=== PATIENT | female | born 1945 | race Caucasian/White ===

== ENCOUNTER → 2016-11-10 | Outpatient (CLI) | payer OTHER ==
[~2016-11-10] MED LIST: AMLO-114 PO; AMOX500C3 PO; ASPEC81 PO; ATEN50TA8 PO; ATV5 PO; B-CO1CAP17 PO; BND25 PO; CALCTAB5 PO; CARB0.5D28 OPB; CHOL200027 PO; CLC100X PO; CYCL0.05 OPB; CYCL5TAB28 PO; GAVISCON PO; HOME1TAB18 PO; IMD/2 PO; LEVO100T PO; LUTE20TA PO; MELA3TAB PO; MENT4GEL TOP; MULT-240 PO; OMEG10007 PO; OXYC-57 PO; OXYC1TAB3 PO; PRLSR20 PO; QSTP/; SALINE NASAL SPRAY; SIME80CH PO; SIMV20TA2 PO; [UNRECOGNIZED DRUG - CODE] PO; [UNRECOGNIZED DRUG - CODE] PO; [UNRECOGNIZED DRUG - OTHER] PO; [UNRECOGNIZED DRUG - OTHER] PO; [UNRECOGNIZED DRUG - OTHER] PO
[2016-11-10 18:22] LABS: THYROID STIMULATING HORMONE 0.567 uIu/ml (0.300-4.500)
== END | disposition home or self-care (01) ==
LOC: C.LABBC 12:34
PROVIDERS: ATTEND Internal Medicine Endocrinology, Diabetes & Metabolism
DX: E06.3 Autoimmune thyroiditis (principal); E03.9 Hypothyroidism, unspecified

== ENCOUNTER → 2017-03-11 | Outpatient (CLI) | payer OTHER ==
[~2017-03-11] MED LIST changes: -BND25 PO; +DIPH25CA5 PO
--- NOTE | 2017-03-11 12:56 | DIAGNOSTIC IMAGING REPORT ---
Thyroid ultrasound CLINICAL HISTORY: E03.9 [id number] Multinodular [id number] COMPARISON STUDY: 07/27/2013 FINDINGS: The right lobe measures 4.8 x 1.5 x 1.5 cm. There is a 5 mm calcified lower pole right lobe nodule, similar to the preceding study. The left lobe measures 4.2 x 1.7 x 2.0 cm. There is a mixed echogenicity lower pole left lobe nodule measuring 9 mm. This is complex cystic. There are 2 relatively isoechoic nodules arising from the isthmus measuring 8 x 10 x 9 mm and 10 x 16 x 8 mm. Both lobes are diffusely heterogeneous in echotexture. IMPRESSION: Multinodular thyroid gland, similar in appearance the prior July 2013 study Electronically signed by: Timothy Dominguez M.D. 03/11/2017 12:55 PM Dictated Date/Time: 03/11/2017 12:51 PM
== END | disposition home or self-care (01) ==
LOC: C.ULTR 12:09
PROVIDERS: ATTEND Internal Medicine Endocrinology, Diabetes & Metabolism
DX: E04.2 Nontoxic multinodular goiter (principal); E03.9 Hypothyroidism, unspecified

== ENCOUNTER → 2018-05-25 | Day surgery (SDC) | payer OTHER ==
[2018-05-06 09:30] VITALS: Ht 170.2 cm; Wt 118.2 kg
[~2018-05-25] VITALS: Ht 170.2 cm; Wt 118.2 kg
[~2018-05-25] MED LIST changes: +500ML BSS 0.3ML EPI 1:1000PF IRRIG ONE; +ACET-1256 PO; +ACETAMINOPHEN 325 MG TAB PO PRN; -AMLO-114 PO; +AMLO10TA3 PO; +AMLO5TAB3 PO; +AMVISC PLUS 0.8ML SYRINGE INT OCU ONE; +ATROPINE SULFATE 0.1 MG/ML 5ML SYR IV PRN; -ATV5 PO; -B-CO1CAP17 PO; +BSS FLUSH ONE; +CALC0.2510 PO; -CALCTAB5 PO; -CLC100X PO; +CYM/30 PO; -DIPH25CA5 PO; +DULO60CA44 PO; +EpHEDrine SULFATE INJ 50 MG/ML AMP IV PRN; +EpINEphrine INJ 1MG/ML AMP 1 MG/ML AMP ONE; +FENTANYL CITRATE INJ 50 MCG/1 ML 2 ML VIAL ONE; +FLUO0.0566 TOP; +FLUT0.15; -GAVISCON PO; -HOME1TAB18 PO; +LACTATED RINGER'S 1000ML 500 ML IV SCH; -LEVO100T PO; +LEVO88TA3 PO; +LIDOCAINE 3.5% OPH GEL PER APPLICATION CHARGE ONE; +LIDOCAINE HCL 1% MPF 2 ML VIAL ONE; +LORA-741 PO; +LUTE15CA PO; -LUTE20TA PO; -MENT4GEL TOP; +MIDAZOLAM HCL 1 MG/ML 2ML VIAL ONE; -MULT-240 PO; +OCUCOAT 1 ML SOLN IO ONE; -OMEG10007 PO; -OXYC-57 PO; +OXYC-737 PO; -OXYC1TAB3 PO; +PHENYLEPHRINE HCL 10% OP SOLN PER DROP CHARGE OPL SCH; +POVIDONE-IODINE OP SOLN 30 ML BTL ONE; +PROBCAP PO; +PROPARACAINE 0.5% OP SOLN PER DROP CHARGE OPL SCH; -QSTP/; +QUESTRAN PO; +TOBRAMYCIN/DEXAMETHASONE OPH OINT PER APPLN CHARGE ONE; -[UNRECOGNIZED DRUG - CODE] PO; +[UNRECOGNIZED DRUG - CODE] TOP; -[UNRECOGNIZED DRUG - OTHER] PO; -[UNRECOGNIZED DRUG - OTHER] PO; -[UNRECOGNIZED DRUG - OTHER] PO
[2018-05-25] MEDS: PHENYLEPHRINE HCL 2.5% OP SOLN PER DROP CHARGE OPL SCH ×2 (07:36→07:41)
[2018-05-25] MEDS: TROPICAMIDE 1% OP SOLN PER DROP CHARGE OPL SCH ×2 (07:37→07:42)
[2018-05-25] MEDS: CYCLOPENTOLATE HCL 1% OP SOLN PER DROP CHARGE OPL SCH ×2 (07:38→07:43)
[2018-05-25] MEDS: KETOROLAC 0.5% OP SOLN PER DROP CHARGE OPL SCH ×2 (07:39→07:44)
[2018-05-25] MEDS: GATIFLOXACIN OP SOLN PER DROP CHARGE OPL SCH ×2 (07:40→07:50)
--- NOTE | 2018-05-25 07:51 | History & Physical Bridge - SC ---
H&P Re-Evaluation Bridge Note: I have examined the patient, reviewed the History & Physical and in the interval since the performance of the History & Physical I have noted the following changes of clinical significance: Diagnosis: Left Cataract Procedure: Left Cataract Removal with Lens Implant No changes noted
--- NOTE | 2018-05-25 08:44 | Discharge Instructions-SurgCtr ---
Discharge Instructions Date of Service May 25, 2018. Visit Reason for Visit: Cataract Left Eye Discharge Discharge Diagnosis / Problem: cataract Discharge Goals Goal(s): Improve function Activity Recommendations Activity Limitations: per Instructions/Follow-up section Anesthesia . Post Anesthesia Instructions: If you have had General Anesthesia or IV Sedation: * Do not drive today. * Resume driving when surgeon permits. * Do not make important decisions or sign legal documents today. * Call surgeon for: 1. Temperature elevations greater than 101 degrees F. 2. Uncontrollable pain. 3. Excessive bleeding. 4. Persistent nausea and vomiting. 5. Medication intolerance (nausea, vomiting or rash). * For nausea and vomiting use only clear liquids such as: tea, soda, bouillon until nausea subsides, then gradually increase diet as tolerated. * If you have any concerns or questions, call your surgeon's office. If physician is unavailable and it is an emergency, call 911 or go to the nearest emergency room. . Diet Recommendations Home Diet: resume previous diet Procedures Procedures Performed: Left Cataract Phacoemulsification With Intraocular Lens Implant Pending Studies Studies pending at discharge: no Medical Emergencies . Who to Call and When: Medical Emergencies: If at any time you feel your situation is an emergency, please call 911 immediately. . Non-Emergent Contact Non-Emergency issues call your: [employer] . . "Provider Documentation" section prepared by Clayton Peralta. .
--- NOTE | 2018-05-25 08:44 | [facility] Operative Report ---
Operative Report Date of Service May 25, 2018. Operative Report 1. PREOPERATIVE DIAGNOSIS: Cataract of the left eye. 2. POSTOPERATIVE DIAGNOSIS: Same. 3. PROCEDURE: Phacoemulsification with intraocular lens implantation of the left eye. SURGEON: Dr. Clayton Peralta. ANESTHESIA: Topical Lidocaine gel, 1% Non- Preserved intracameral Lidocaine, and monitored intravenous sedation. INDICATIONS FOR THE PROCEDURE: The patient is a 72 - year-old female with a history of cataract of the left eye causing significant visual impairment. The details of the proposed procedure were explained to the patient who asked appropriate questions and following discussion of all risks, benefits and alternatives agreed to have the procedure done. 4. OPERATION AND FINDINGS: DESCRIPTION OF PROCEDURE: After informed consent was obtained, the patient was brought to the Operating Room at the [facility]. The patient was placed in a supine position and then the left eye was prepped and draped in the usual sterile fashion for intraocular surgery. A drop of topical Lidocaine gel was placed in the operative eye. A wire lid speculum was then placed in the fornices. A corneal paracentesis was then created temporally. The Non-Preserved Lidocaine was then instilled into the anterior chamber. The anterior chamber was then pressurized with viscoelastic. A 2.0 mm clear corneal incision was then created temporally. A cystotome was inserted into the anterior chamber and used to create a tear in the anterior lens capsule. This capsular tear was then used to create a small flap and the flap was dragged in a counterclockwise direction in order to create a continuous curvilinear capsulorrhexis. Hydrodissection was accomplished with balanced salt solution. Phacoemulsification of the lens nucleus was then performed in a standard [id number] technique. The phaco time was 15 seconds with an average power of 11 %. The remaining cortical material was removed using irrigation aspiration. The capsular bag was then filled with viscoelastic. A [employer]ch [employer] Lomb MI60L +19.5 diopters lens was then loaded into the injector and injected into the capsular bag. The remaining viscoelastic was removed with the irrigation aspiration handpiece. The wound was hydrated and then checked and found to be watertight. The intraocular pressure was checked and found to be adequate. The wire lid speculum was removed and the patient's face was cleaned and dried. TobraDex ointment was placed in the inferior fornix. The patient was discharged to the Recovery Room having tolerated the procedure well. There were no complications. The patient will be seen tomorrow in the office for follow-up. I attest to the content of the Intraoperative Record and any orders documented therein. Any exceptions are noted below.
[2018-05-25 08:48] VITALS: TEMP 37.2
[2018-05-25 09:13] VITALS: BP 138/80; PULSE 62; O2SAT 96
--- NOTE | 2018-05-25 09:17 | Anesthesia Progress Nt - [facility] ---
Anesthesia Post Op Note Date & Time May 25, 2018 at 09:17 Vital Signs Pain Intensity: 0 Vital Signs Past 12 Hours Date Time Temp Pulse Resp B/P (MAP) Pulse Ox O2 Delivery O2 Flow Rate FiO2 05/25/18 09:13 62 18 138/80 (99) 96 05/25/18 08:48 37.2 72 18 133/72 (92) 94 Room Air 05/25/18 07:29 37 69 20 138/81 (100) 96 Room Air Notes Mental Status: alert / awake / arousable, participated in evaluation Pt Amnestic to Procedure: Yes Nausea / Vomiting: adequately controlled Pain: adequately controlled Airway Patency, RR, SpO2: stable & adequate BP & HR: stable & adequate Hydration State: stable & adequate Anesthetic Complications: no major complications apparent
== END | disposition home or self-care (01) ==
LOC: X.SURG 06:42
PROVIDERS: ATTEND Ophthalmology
DX: H26.9 Unspecified cataract (principal); I12.9 Hypertensive chronic kidney disease with stage 1 through stage 4 chronic kidney disease, or unspecified chronic kidney disease; F41.9 Anxiety disorder, unspecified; F32.9 Major depressive disorder, single episode, unspecified; N18.3 Chronic kidney disease, stage 3 (moderate); M19.90 Unspecified osteoarthritis, unspecified site; E66.01 Morbid (severe) obesity due to excess calories; Z68.41 Body mass index [BMI] 40.0-44.9, adult; Z87.891 Personal history of nicotine dependence; Z79.899 Other long term (current) drug therapy